=== PATIENT | male | born 1995 | race American Indian/Alaskan Native ===

== ENCOUNTER 2017-03-26 20:06 | Emergency (ER) | payer MEDICAID ==
--- NOTE | 2017-03-26 22:02 | C.PDOC ---
History Of Present Illness 21 year old male, no medical history, presents to the ED for evaluation of SOB which began suddenly while patient was sitting resting earlier this evening. He describes epigastric abdominal and midsternal chest pain with deep breathing while he was watching TV. Pt has a h/o of panic attacks and states this jason is different. He denies heavy lifting, recent URI sx, recent travel, recent prolonged immobility or coagulopathy state. He denies nausea, vomiting. He endorses smoking. Pain has improved a lot since arrival to ER Time Seen by Provider: 03/26/17 21:06 Chief Complaint (Nursing): Shortness Of Breath History Per: Patient History/Exam Limitations: no limitations Onset/Duration Of Symptoms: Mins Current Symptoms Are (Timing): Still Present Initiating Event: denies: Upper Respiratory Illness, Exercising/Sports Exacerbating Factor(s): Other (deep breath) Past Medical History Reviewed: Historical Data, Nursing Documentation, Vital Signs Vital Signs: Last Vital Signs Temp 98.4 F 03/26/17 23:12 Pulse 60 03/26/17 23:12 Resp 16 03/26/17 23:12 BP 98/60 L 03/26/17 23:12 Pulse Ox 100 03/26/17 23:26 Family History: States: Unknown Family Hx - Social History Hx Alcohol Use: Yes Hx Substance Use: Yes (DENIED) - Immunization History Hx Tetanus Toxoid Vaccination: No Hx Influenza Vaccination: No Hx Pneumococcal Vaccination: No Review Of Systems Respiratory: Positive for: Shortness of Breath Gastrointestinal: Negative for: Nausea Physical Exam - Physical Exam Appears: Non-toxic, No Acute Distress Skin: Normal Color, Warm, Dry Head: Atraumatic, Normacephalic Chest: No Deformity, Tenderness (chest wall ) Cardiovascular: Rhythm Regular, No Murmur Respiratory: Normal Breath Sounds Gastrointestinal/Abdominal: Normal Exam, Soft, No Tenderness, No Distention Neurological/Psych: Oriented x3 ED Course And Treatment O2 Sat by Pulse Oximetry: 100 Pulse Ox Interpretation: Normal - Radiology CXR: Interpreted by Me CXR Interpretation: Yes: Heart Size (NL). No: Infiltrates, Pnemothorax Progress Note: Pt is now asymptomatic and in no acute pain or SOB, VSS. Based on istory, pt's age and clinical presentstion, sx are not indicative of TN, PE or aortic dissection. Pt advised PMD or clinic follw. up Reassessment Condition: Improved Disposition Counseled Patient/Family Regarding: Diagnosis - Disposition Referrals: [facility] [Outside] Disposition: HOME/ ROUTINE Disposition Time: 23:19 Condition: STABLE Additional Instructions: Please follow up with PMD Return to ER if worse Prescriptions: Ibuprofen [Motrin] 600 mg PO QID #20 tab Instructions: Chest Wall Pain (ED) Forms: [employer] (Italian) - Clinical Impression Clinical Impression: Chest wall pain - Scribe Statement The provider has reviewed the documentation as recorded by the Scribe Jerardo Bales
[2017-03-26 23:11] VITALS: RESP 16
[2017-03-26 23:12] VITALS: BP 98/60; PULSE 60; TEMP 98.4
[2017-03-26 23:20] VITALS: O2SAT 100
--- NOTE | 2017-03-27 09:24 | RAD ---
HISTORY: SOB COMPARISON: No prior. TECHNIQUE: Chest PA and lateral FINDINGS: LUNGS: No active pulmonary disease. PLEURA: No significant pleural effusion identified. No pneumothorax apparent. CARDIOVASCULAR: Normal. OSSEOUS STRUCTURES: No significant abnormalities. VISUALIZED UPPER ABDOMEN: Normal. OTHER FINDINGS: None. IMPRESSION: No active disease.
== END 2017-03-26 23:37 | disposition home or self-care (01) ==
LOC: C.ER 20:06
DX: R07.89 Other chest pain (principal)